=== PATIENT | female | born 1955 | race Caucasian/White ===

== ENCOUNTER → 2020-06-08 | Outpatient (CLI) | payer OTHER ==
[~2020-06-08] MED LIST: AMLODIPINE5 MG PO; CARISOPRODOL250 MG PO; CLONAZEPAM0.5 MG PO; HYDROCODONE BIT1 TAB PO; MELOXICAM15 MG PO; PRAMIPEXOLE DI0.5 MG PO; PREDNICOT20 MG PO; PRISTIQ100 MG PO; PROPRANOLOL60 MG PO; ZESTRIL,PRINIVI20 MG PO
== END | disposition home or self-care (01) ==
LOC: COVID19 16:22
PROVIDERS: ATTEND Family Medicine
DX: Z20.822 Contact with and (suspected) exposure to COVID-19 (principal); R09.81 Nasal congestion